=== PATIENT | male | born 1945 ===

== ENCOUNTER 2016-08-01 10:17 | Emergency (ER) | payer SELFPAY ==
--- NOTE | 2016-08-01 10:47 | UC ---
Abdominal Pain Female HPI - HPI Summary HPI Summary: here with his complaint of diarrhea for the last 4 days intermittent nausea, vomitied several times for the past 2 days fever at beginning of illness- the first day vomiting on the first day of illness diarrhea since wednesday morning- 3-4x today abdominal cramping has been able to drink fluids and pedialyte 1 episode of blood in stool - 2 days ago not taking any medication for symptoms checked his bG 2 daysa go in the 130's - History of Current Complaint Chief Complaint: UCGI Stated Complaint: NAUSEA VOMITING DIARRHEA Time Seen by Provider: 08/01/16 10:40 Hx Obtained From: Patient Allergies/Adverse Reactions: Allergies Allergy/AdvReac Type Severity Reaction Status Date / Time Penicillins [PCN] Allergy Rash Verified 08/01/16 10:36 Home Medications: Home Medications Atenolol TAB* [Tenormin TAB* 25 MG] 25 mg PO DAILY 08/01/16 [History Confirmed 08/01/16] Enalapril Maleate & Hydrochlor [Enalapril Maleate/Hydroch 5-12.5 mg] 1 tab PO DAILY 08/01/16 [History Confirmed 08/01/16] Pravastatin (NF) [Pravachol (NF)] 20 mg PO DAILY 08/01/16 [History Confirmed ] metFORMIN* [Glucophage 1000 MG TAB *] 500 mg PO BID 08/01/16 [History Confirmed 08/01/16] PMH/Surg Hx/FS Hx/Imm Hx Previously Healthy: Yes Endocrine History Of: Reports: Diabetes - DM 2 Cardiovascular History Of: Reports: Hypertension - HTN - Surgical History Surgical History: None - Family History Known Family History: Positive: Cardiac Disease, Hypertension, Diabetes - parents - Social History Occupation: Employed Full-time Lives: With Family Alcohol Use: Rare Substance Use Type: None Smoking Status (MU): Never Smoked Tobacco Review of Systems Constitutional: Fever Skin: Negative Eyes: Negative ENT: Negative Respiratory: Negative Cardiovascular: Negative Gastrointestinal: Vomiting, Diarrhea Genitourinary: Negative Motor: Negative Neurovascular: Negative Musculoskeletal: Negative Neurological: Negative Psychological: Negative All Other Systems Reviewed And Are Negative: Yes Physical Exam Triage Information Reviewed: Yes Appearance: No Pain Distress, Ill-Appearing Vital Signs: Initial Vital Signs Temp 97.5 F 08/01/16 10:32 Pulse 96 08/01/16 10:32 Resp 16 08/01/16 10:32 BP 122/79 08/01/16 10:32 Pulse Ox 99 08/01/16 10:32 Vital Signs Reviewed: Yes Eyes: Positive: Conjunctiva Clear ENT: Positive: Pharynx normal, TMs normal Neck: Positive: No Lymphadenopathy Respiratory: Positive: Lungs clear, Normal breath sounds, No respiratory distress, No accessory muscle use Cardiovascular: Positive: RRR, No Murmur, Pulses Normal, Brisk Capillary Refill Abdomen Description: Positive: Nontender, No Organomegaly, Soft. Negative: CVA Tenderness (R), CVA Tenderness (L), Distended, Guarding Bowel Sounds: Positive: Hyperactive Musculoskeletal: Positive: No Edema Neurological: Positive: Alert Psychological Exam: Normal Skin: Positive: Other - dry-poor turgor Re-Evaluation - Re-Evaluation First Eval Change: Improved - less nausea Abd Pain Female Course/Dx - Course Course Of Treatment: exam completed. VS stable - will rehydrate with NS and given zofran so her can increase fluids and rest. will restart regular medications after he starts eating solids. discussed s/s of when to seek emergent care and pt states understanding. pt leaving the area in 2 days - Differential Dx/Diagnosis Differential Diagnosis: Other - gastroenteritis, c diff Provider Diagnoses: gastroenteritis Discharge - Discharge Plan Condition: Stable Disposition: HOME Prescriptions: Ondansetron ODT TAB* [Zofran 4 MG Odt TAB*] 4 mg PO Q6H PRN #12 tab.odt PRN Reason: Nausea Patient Education Materials: Gastroenteritis (ED) Referrals: [facility] [place] [facility] [Outside] Additional Instructions: Take zofran and directed increase your fluids If your symptoms do not improveor worsen please seek medical help in the emergency room please followup with your primary care provider when you return home. GASTROENTERITIS What is Gastroenteritis? Gastroenteritis is an inflammation of the stomach and bowel that is often called the stomach "flu.'' It should only last 1 or 2 days. You usually get gastroenteritis because you've been in contact with someone who's already infected or because you've eaten contaminated food, or drank contaminated water. Many different viruses can cause intestinal problems but the signs and symptoms are usually the same: watery diarrhea, abdominal cramps, and nausea or vomiting. Symptoms Might Include: Abdominal cramps Diarrhea Nausea Vomiting Blood or mucus in stools Muscle aches Headaches Fever Extreme exhaustion Treatment Recommendations: Decrease activity until you feel better or the diarrhea and vomiting are gone. Take clear liquids, such as mynor papa, cola, water, tea, broth, and gelatin, for the first 24 hours or until the diarrhea and vomiting stops. During the next 24 hours you may eat bland foods like cooked cereals, rice, soup, bread, crackers, baked potatoes, eggs, or applesauce. Do not eat fruits, vegetables, fried or spicy foods, bran, candy, dairy products (such as milk or ice cream), apple juice, or alcoholic beverages. You may go back to your normal diet after 2 to 3 days. Drink 8 to 12 glasses of liquid a day. Most of the problems with gastroenteritis are caused by loss of water through vomiting and diarrhea. You may take ibuprofen (Motrin, Advil) or acetaminophen (Tylenol) for fever and muscle aches. Call Your Doctor or Return Here IF: Your symptoms last for more than 3 days. You have severe pain in the abdomen (area around the stomach) or rectum. You have a high temperature. You find blood, mucus, or worms in your stool. You have signs of dehydration (water loss), including dry mouth, excessive thirst, crinkled skin, little or no urination, dizziness, or light-headedness. You have any other new symptoms that worry you.
[2016-08-01] MEDS ORDERED: Ondansetron INJ* 2 MG/ML VIAL IV ONE (11:03)
[2016-08-01] MEDS ORDERED: NS 0.9% 1000 ML* 1,000 ML IV ONE (11:08)
== END 2016-08-01 12:10 | disposition home or self-care (01) ==
LOC: UCEAST 10:17
DX: K52.9 Noninfective gastroenteritis and colitis, unspecified (principal); E11.9 Type 2 diabetes mellitus without complications; I10 Essential (primary) hypertension; Z88.0 Allergy status to penicillin; Z79.84 Long term (current) use of oral hypoglycemic drugs
CPT/HCPCS: 87045; 87046; 87899; 96360; 96374; 99202; G0463; J2405